=== PATIENT | male | born 1960 | race Caucasian/White ===

== ENCOUNTER 2019-02-21 17:08 | Inpatient (IN) | payer OTHER ==
[~2019-02-21] VITALS: Ht 152.4 cm; Wt 87.1 kg
[~2019-02-21 17:08] MED LIST: AMPHETAMINE SAL10 MG PO; DOXYCYCLINE 10100 MG PO; FISH OIL 1,001000 M2 PO; MICROZIDE12.5 MG PO; MOBIC15 MG PO; MULTIPLE VITAM1 EAC2 PO; OLANZAPINE-FLU1 EACH PO; TYLENOL EXTRA500 MG PO
[2019-02-21 17:09] VITALS: BP 100/56
[2019-02-21 17:56] LABS: ABSOLUTE NEUTROPHILS 5.3 thou/uL (1.4-8.2); BASOPHILS 0.6 % (0.0-2.0); HEMATOCRIT 40.1 % (42.0-52.0); HEMOGLOBIN 13.6 gm/dL (14.0-18.0); LYMPHOCYTES 19.7 % (24.0-44.0); MCH 32.5 pg (26.0-34.0); MCHC 33.8 g/dL (28.0-37.0); MONOCYTES 7.3 % (1.0-8.0); PLATELET COUNT 261 thou/uL (150-400); POLYS 70.4 % (36.0-66.0); RBC 4.18 mil/uL (4.50-6.00); RDW 12.9 % (10.5-14.5); WBC 7.6 thou/uL (4.0-11.0)
[2019-02-21 18:04] LABS: ANION GAP 6 mmol/L (7-16); BUN 23 mg/dL (7-18); CALCIUM 9.5 mg/dL (8.5-10.1); CHLORIDE 104 mmol/L (98-107); CO2 34 mmol/L (21-32); CREATININE 1.3 mg/dL (0.7-1.3); GLUCOSE 92 mg/dL (74-106); POTASSIUM 4.5 mmol/L (3.5-5.1); SODIUM 144 mmol/L (136-145)
[2019-02-21 18:14] LABS: ALBUMIN 3.4 g/dL (3.4-5.0); SGOT 19 U/L (15-37); SGPT 22 U/L (30-65); TOTAL BILIRUBIN 0.4 mg/dL (<0.1-1.0); TOTAL PROTEIN 7.3 g/dL (6.4-8.2); TROPONIN-I <0.06 ng/mL (<0.06)
[2019-02-21 18:41] LABS: URINE BILIRUBIN NEGATIVE (Negative); URINE BLOOD NEGATIVE (Negative); URINE CLARITY CLEAR; URINE COLOR YELLOW; URINE GLUCOSE-RANDOM* NEGATIVE (Negative); URINE KETONES TRACE (Negative); URINE LEUKOCYTES-REFLEX NEGATIVE (Negative); URINE NITRITE-REFLEX NEGATIVE (Negative); URINE PROTEIN (DIPSTICK) NEGATIVE (Negative)
[2019-02-22 07:55] VITALS: BP 112/60
--- NOTE | 2019-02-22 09:01 | NUR ---
admit pt admitted last evening for generalized weakness and tremors. vss, oriented to room call light system and poc. denies pain up with sba. voiding qs tremors noted pt reported thet are as is his shuffling gait. right eye red eye gtts given as ordered
[2019-02-22 13:51] VITALS: BP 98/55
--- NOTE | 2019-02-22 16:17 | NUR ---
PT ADMITTED RELATED TO WEAKNESS, HX OF HYDROCEPHALUS. CM REVIEWED CHART AND SPOKE WITH CARE TEAM. CM MET WITH PT AT BEDSIDE THIS DAY. PT IS A&O X4. CM ROLE INTRODUCED. PT INDICATED HE LIVES IN ASSISTED LIVING AT [facility]. 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 PT INDICATED THAT HE ANTICPATES RETURNING TO [facility] ONCE MEDICALLY STABLE. CM TO FOLLOW INDICATED WITH DC PLANNING.
--- NOTE | 2019-02-22 19:28 | NUR ---
ASSUMED CARE OF PATIENT AT 0715, PATIENT ALERT AND ORIENTED. PATIENT DENIES PAIN, VSS THIS SHIFT. PATIENT HAD MRI OF HEAD TODAY. PATIENT HAS RIGHT FOREARM IV WITH NS AT 80CC/HR. PATIENT ISOLATION DUE TO PINK EYE. PATIENT UP WITH SBA, GIAT NOT STAEDY, SHUFFLE GAIT WITH C/O WEAKNESS. APPETITE IS GOOD. LABS ORDERED FOR IN THE AM. WILL CONTINUE TO MONITOR.
--- NOTE | 2019-02-22 19:36 | NUR ---
Assumed patient care at 0715. Patient's vital signs have been stable, ABD soft et non-tender, BS x's 4, LSCTA, skin is clean, warm dry et intact; he denies pain. Patient consumed adequate amounts of food et fluids; IV is patent in left AC with NS @ 80cc per hour. Compliant with eye medications. Patient needs stand-by assist, as he leans to the right side et has a shuffled gait. Will continue to monitor.
[2019-02-22 20:12] VITALS: BP 114/60
--- NOTE | 2019-02-23 03:24 | NUR ---
PATIENT ALERT AND ORIENTED X4. REMAINS IN ISO FOR PINKEY[place]. UP TO BATHROOM WITH ASSIST OF ONE AND WALKER. HAS A SHUFFLE WALK. DENIES PAIN. SLEPT MOST OF TIME.
[2019-02-23 07:10] LABS: TSH 3.312 uIU/mL (0.358-3.740)
[2019-02-23 07:55] VITALS: BP 111/68
--- NOTE | 2019-02-23 07:55 | EKG ---
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
[2019-02-23 12:24] VITALS: BP 113/67
--- NOTE | 2019-02-23 13:56 | NUR ---
PT IS INDICATING THAT PT WILL BE MEDICALLY STABLE TO RETURN BACK TO ASSISTED LIVING AT [facility] WITH HOME HEALTH SERVICES. CM VISITED WITH PT TO DETERMINE WHICH PROVIDER PT WOULD LIKE TO USE AND HE INDICATED NO HX AND PREFERENCE. CM ASKED DC HOME PLANNING CONSULTANT SALESPERSON TO SEND REFERRAL TO [facility] TO SEE IF THEY CAN ACCEPT PT FOR HH SERVICES UPON DC. CM TO FOLLOW INDICATED WITH DC PLANNING.
--- NOTE | 2019-02-23 14:03 | NUR ---
DISCHARGE PLANNING. ANTICIPATED DISCHARGE PLANNED FOR TOMORROW. HOME HEALTH RECOMMENDED. REFERRAL FAXED TO [facility], PER PATIENT REQUEST. CALL PLACED TO [facility] TO NOTIFY. FOLLOWING.
--- NOTE | 2019-02-23 15:35 | NUR ---
[facility] WAS OUT OF NETWORK WITH PT'S INSURANCE. CM FAXED REFERRAL TO [facility] FOR REVIEW. CM TO FOLLOW INDICATED WITH DC PLANNING.
--- NOTE | 2019-02-23 18:08 | NUR ---
Assumed patient care at 0715. Patient continues on Contact Isolation for [facility]. He has been compliant with all medications during this shift. Patient continues to need some assistance with transferring from bed to chair, walking to and from the restroom. Vital signs have been stable, LSCTA, ABD soft et non-tender, skin is clean, warm, dry and intact; he denies pain. Will continue to monitor.
[2019-02-23 20:55] VITALS: BP 110/64
--- NOTE | 2019-02-24 04:08 | NUR ---
Pt. rested quietly at intervals during the night when checked on during frequent rounds. He refuses to remove his jeans and prefers to sleep in them. He offers no complaitns of pain. Assisted to the bathroom with one assist. Bed alarm is on.
[2019-02-24 08:38] VITALS: BP 117/73
[2019-02-24 14:19] VITALS: BP 105/59
[2019-02-24 14:47] VITALS: BP 105/59
[2019-02-24] MEDS ORDERED: TRIMETHOPRIM /P10 M1 OPHTHALMIC ×2 (16:04→16:08)
--- NOTE | 2019-02-24 16:10 | NUR ---
CARE TEAM INDICATED THAT PT IS MEDICALLY STABLE TO DC BACK TO [facility] THIS DAY. CHART COPY ORDERED. ORDERS FAXED. REPORT TO BE CALLED TO . WHEELCHAIR VAN ARRANGED FOR 1700. PT TO HAVE SERVICES [facility]. NO OTHER CM INTERVENTION INDICATED. CASE CLOSED.
--- NOTE | 2019-02-24 18:44 | NUR ---
ASSUMED CARE OF PATIENT AT 0715, PATIENT ALERT AND ORIENTED, CAN BE FORGETFUL. PATIENT DENIES PAIN THIS SHIFT. PATIENT IN ISOLATION FOR PINK EYE. PATIENT UP WITH SBA WITH GAIT BELT AND WALKER. FALL PRECAUTIONS IN PLACE, PATIENT INSTRUCTED TO CALL FOR ASSISTANCE. PATIENT HAS SHUFFLE GAIT AND UNSTEADY. DR MARCOS SAW THE PATIENT AND DISCHARGE ORDER BACK TO THE ASSISTED LIVING. SCRIPT FOR EYE DROPS IN DISCHARGE PAPERWORK, REPORT GIVEN TO DREW AT THE ASSISTED LIVING. ALL PERSONAL BELONGINGS SENT WITH THE PATIENT.
--- NOTE | 2019-03-04 09:22 | HC ---
[facility] [place] [place] [address] CONSULTATION Name: SHIN GOMEZ Room #: 443-P [facility] IN M.R.#: [id number] Admission: 02/21/19 Attend Phys: Ifeanyi Gutierrez MD Discharge: 02/24/19 Date of : 56 Report #: [id number] THIS REPORT FOR: //name// CC: Ifeanyi Chowdary DATE OF SERVICE: 02/22/2019 HISTORY OF PRESENT ILLNESS: This is a 58-year-old male patient who was seen by me with pretty unusual history. He indicates he was feeling weak all over the body. He indicates he got some IV fluid and he feels back to his baseline. He indicates he has some tremor which intermittently flares up. He was given some medication by somebody and that caused some diarrhea and he did not take it. He is also having some redness in the left eye. He sees a psychiatrist for multiple psychiatric problems. REVIEW OF SYSTEMS: Indicate he was feeling generalized weakness. He is feeling better from that. He has a history of hydrocephalus, but I do not know whether he has been evaluated by anybody. He says he can ambulate reasonably well. He has multiple psychiatric problems. His 14-point review of system was carried out and it is positive for OCD, depressive disorder. History says that he had some cervical spine problem. He says he does not have that. That was his relevant 14-point review of system. PAST MEDICAL HISTORY: Positive for tremor and psychiatric problem. FAMILY HISTORY: Negative for early age stroke. SOCIAL HISTORY: Denies the use of alcohol or tobacco. PHYSICAL EXAMINATION: Indicates he is alert, he is responsive, he can follow simple commands. His cranial nerve examinations indicate the left eye is red. He moves all 4 extremities. He said he has reasonably good position sense. He does have some tremor, but does not have much abnormality of [id number]. Cardiac and respiratory examinations appear noncontributory. He has no thyroid mass. He is reasonably well built individual. His blood pressure is 98/55. He has no respiratory difficulty. His pulse is 76, temperature is 98.3. His pulses are difficult to feel. DIAGNOSTIC STUDIES: CT and MRI was reviewed. It demonstrated chronic hydrocephalus. IMPRESSION: His symptoms are most likely related to systemic problem. His blood pressure is low. He feels better and back to the baseline after getting some IV fluid. I will suggest working that up. [facility] [address] [place] [address] CONSULTATION Name: SHIN GOMEZ Room #: 443-P [facility] IN M.R.#: [id number] Admission: 02/21/19 Attend Phys: Ifeanyi Gutierrez MD Discharge: 02/24/19 Date of : 56 Report #: [id number] He does have some hydrocephalus, this is probably an incidental finding, but I will suggest consulting neurosurgeon to complete the workup. I did order some more blood workup for morning. Please check that. Otherwise, I do not have anything specific to add. Please call us in case blood workup is abnormal or any further neurological followup is needed. Thank you very much for this referral and if you have any question, please feel free to contact me. <ELECTRONICALLY SIGNED> By: Edin Kiser MD 03/04/19 0922 1804 0411 Edin Kiser MD /nt
== END 2019-02-24 17:43 | DRG 948 ==
LOC: ER 17:08 → EROBS 20:54 → 4S 20:54
PROVIDERS: Physician Assistant; Psychiatry & Neurology Neuromuscular Medicine; ADMIT Hospitalist
DX: R53.1 Weakness (principal); G91.9 Hydrocephalus, unspecified; H10.89 Other conjunctivitis; F42.9 Obsessive-compulsive disorder, unspecified; F32.9 Major depressive disorder, single episode, unspecified; F41.9 Anxiety disorder, unspecified; Z88.1 Allergy status to other antibiotic agents; Z88.0 Allergy status to penicillin; Z88.8 Allergy status to other drugs, medicaments and biological substances; Z83.1 Family history of other infectious and parasitic diseases
CPT/HCPCS: 10195

== ENCOUNTER 2020-07-09 20:45 | Inpatient (IN) | payer OTHER ==
[~2020-07-09] VITALS: Ht 180.3 cm; Wt 78.8 kg
[~2020-07-09 20:45] MED LIST changes: +TRIMETHOPRIM /P10 M1 OPHTHALMIC
[2020-07-09 20:46] VITALS: BP 102/67
[2020-07-09 21:13] LABS: BASOPHILS 0.5 % (0.0-2.0); EOSINOPHILS 0.2 % (0.0-3.0); HEMATOCRIT 39.8 % (42.0-52.0); HEMOGLOBIN 13.4 gm/dL (14.0-18.0); LYMPHOCYTES 6.1 % (24.0-44.0); MCH 32.2 pg (26.0-34.0); MCHC 33.7 g/dL (28.0-37.0); MCV 95.5 fL (80.0-100.0); MONOCYTES 7.4 % (1.0-8.0); PLATELET COUNT 209 thou/uL (150-400); POLYS 85.8 % (36.0-66.0); RBC 4.17 mil/uL (4.50-6.00); RDW 13.7 % (10.5-14.5); WBC 17.5 thou/uL (4.0-11.0)
[2020-07-09 21:20] LABS: ANION GAP 10 mmol/L (7-16); BUN 15 mg/dL (7-18); CALCIUM 9.5 mg/dL (8.5-10.1); CHLORIDE 98 mmol/L (98-107); CO2 25 mmol/L (21-32); CREATININE 1.2 mg/dL (0.7-1.3); GLUCOSE 136 mg/dL (74-106); POTASSIUM 4.4 mmol/L (3.5-5.1); SODIUM 133 mmol/L (136-145)
[2020-07-09 21:30] LABS: ALBUMIN 3.2 g/dL (3.4-5.0); SGOT 23 U/L (15-37); SGPT 30 U/L (30-65); TOTAL BILIRUBIN 0.9 mg/dL (0.2-1.0); TOTAL PROTEIN 7.7 g/dL (6.4-8.2); TROPONIN-I <0.06 ng/mL (<0.06)
[2020-07-09] MEDS ORDERED: MULTIPLE VITAM1 EAC2 PO (21:54)
[2020-07-09] MEDS ORDERED: MIRALAX119 GM PO (21:54)
[2020-07-09] MEDS ORDERED: COLACE100 MG PO (21:54)
[2020-07-09] MEDS ORDERED: SYNTHROID50 MCG PO (21:55)
[2020-07-09] MEDS ORDERED: SEROQUEL 50 MG50 M1 PO (21:56)
[2020-07-09] MEDS ORDERED: FLUVOXAMINE MA100 MG PO (21:56)
[2020-07-10 01:54] LABS: URINE BILIRUBIN NEGATIVE (Negative); URINE BLOOD 2+ (Negative); URINE CLARITY CLOUDY; URINE COLOR YELLOW; URINE GLUCOSE-RANDOM* NEGATIVE (Negative); URINE KETONES 2+ (Negative); URINE NITRITE-REFLEX NEGATIVE (Negative); URINE PROTEIN (DIPSTICK) 1+ (Negative); URINE SPECIFIC GRAVITY 1.025 (1.005-1.035)
[2020-07-10 01:56] LABS: URINE LEUKOCYTES-REFLEX 2+ (Negative)
[2020-07-10 02:05] LABS: BACTERIA-REFLEX >30 Many /HPF (None Seen); CASTS None Seen /LPF (None Seen); CRYSTALS None Seen /LPF (None Seen); MUCUS 4-6 Moderate strn/LPF (None Seen); SQUAMOUS 0-3 Few /LPF (0-3)
--- NOTE | 2020-07-10 07:00 | EKG ---
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 : 1960 Requested By: Lakeshia Walls Order Number: [id number] MD: Amador Henry Measurements Intervals [place] Rate: 112 P: 59 [place]: 151 QRS: 69 QRSD: 87 T: 25 QT: 325 QTc: 444 Interpretive Statements Sinus tachycardia Ventricular premature complex Low voltage, extremity leads Compared to ECG 02/21/2019 17:45:06 Ventricular premature complex(es) now present Low QRS voltage now present Sinus rhythm no longer present Electronically Signed On 07-10-2020 6:59:55 CONSULTING ANALYST by Amador Henry [email or web address] <ELECTRONICALLY SIGNED> By: Amador Henry MD, FAC 07/10/20 0659 50 50 Amador Henry MD, [facility] /EPI
[2020-07-10 07:52] VITALS: BP 106/59
--- NOTE | 2020-07-10 10:55 | NUR ---
59-year-old male with history of congenital hydrocephalus, anxiety, hypothyroidism, recent COVID-19 diagnosis approximately 2 months prior to this ED presentation. The patient has been sent by [facility] (confirmed by Anny RAMIREZ on 07-10-20) for evaluation general weakness, syncopal episodes, most recently while on the toilet. Currently patient alert, oriented to self, follows commands. Patient reports to be SOA with decreased appetite for a few weeks. The patient has been admitted for: Sepsis likely secondary to UTI, Reported syncopal episode, Generalized weakness and debility, shingles to right flank, OCD/Depression, history of hydrocephalus and recent COVID 19. Influenza A & B negative. NOTE: PT/OT orders placed on 07-10-20 [facility] 02-24-19 and returned with Replaced By [facility]. Listed as authorized contact and next of kin is Anny Samuel [phone]. Spoke with Anny who is first cousin and DPOA and states he does have Asperger's with OCD tendencies. Anny confirmed patient does live in Assisted Living at [facility]. Reintroduced role of case management. Hope and plan is to return to Assisted Living with home health.
[2020-07-10 16:18] VITALS: BP 101/56
[2020-07-10 16:24] VITALS: BP 102/42
--- NOTE | 2020-07-10 16:36 | NUR ---
report rec'd from Karuna in ER
[2020-07-10 16:40] VITALS: BP 103/47
[2020-07-10] MEDS ORDERED: IBUPROFEN 400400 M1 PO (18:26)
--- NOTE | 2020-07-10 18:43 | NUR ---
THIS RN SPOKE TO PT DPOA MALLY FAJARDO. PT HAS DECLINED IN ACTIVITY SINCE COVID MAY 13, 2020. BEING INCONTINENT IS NOT NORMAL FOR PT. PT HAS BEEN REFUSING SHOWERS AT THE ASSISTED LIVING SINCE COVID. DPOA STATES PT HAS HAD AT LEAST THE FIRST ROUND OF THE COVID VACCINATION, UNSURE OF SECOND DOSE.
[2020-07-10 19:49] VITALS: BP 89/52
--- NOTE | 2020-07-10 22:38 | NUR ---
PT RESTLESS IN BED, INCONTINENT, IVF INTACT. FLAT AFFECT. BED ALARM ON. NOTED TREMORS WITH DRINKING OF WATER.
--- NOTE | 2020-07-11 03:42 | HC ---
[facility] [place] [address] CONSULTATION Name: SHIN GOMEZ Room #: 357-P ADM IN M.R.#: [id number] Admission: 07/10/20 Attend Phys: Emili Guzmán MD Discharge: Date of : 56 Report #: [id number] THIS REPORT FOR: cc: Cordell Stiles,Edin Fields MD ~ DATE OF SERVICE: 07/10/2020 HISTORY OF PRESENT ILLNESS: This 59-year-old male patient who was seen by me for a poorly defined history. He said he had an episode of syncope, but he does not remember much about that. Records indicate that he had COVID and then he is progressively feeling weaker. His appetite is decreased. He has a history of anxiety and hydrocephalus. Records indicate that he was evaluated by Neurosurgery and he was not found to be a candidate for any surgery. His CT scan does not show any change in that hydrocephalus. He said he lives in a [place]. REVIEW OF SYSTEMS: A 14-point review of systems was carried out, the best I can. He has a history of anxiety. He has a history of depression. He has a history of hydrocephalus. He said he is unable to ambulate and he has weakness. He has some cervical spine disease in the past. That was the relevant 14-point review of systems, which was carried out. PAST MEDICAL HISTORY: Positive for COVID. FAMILY HISTORY: Unremarkable. SOCIAL HISTORY: He says he lives in a [place]. He does not use any alcohol or smoke. PHYSICAL EXAMINATION: Indicate that he is alert. He is responsive. He can follow simple command. His speech looks intact. He believes his memory and fund of knowledge is at his baseline. Cranial nerve examination 2-12 does not appear to be showing any gross abnormality. He wanted to go to the restroom. His cooperation was not all that great. He moves all 4 extremities. He says he can feel on both sides. He does not have any meningeal sign. I could not look at the fundus. He does not appear to be in respiratory distress. CARDIAC: Unremarkable. VITAL SIGNS: His blood pressure is 103/47, respirations 19, pulse is 101, temperature is 98.6. LABORATORY DATA: White count is 17.5. His sodium is 133. His CT scan shows ventriculomegaly, which is unchanged. He does not have edema, cyanosis or jaundice. [facility] [address] [place] [address] CONSULTATION Name: SHIN GOMEZ Room #: 357-P ADM IN .R.#: [id number] Admission: 07/10/20 Attend Phys: Emili Guzmán MD Discharge: Date of : 56 Report #: [id number] IMPRESSION: Difficult to form in this patient. I will await their evaluation by physical therapy. He needs workup, but lot of workup is not even available there. He needs an EMG and we may get him evaluated by physical therapy and then subsequently rehabilitation and I will reevaluate him after he has an opportunity to work with physical therapy tomorrow. <ELECTRONICALLY SIGNED> By: Edin Kiser MD 07/11/20341 17 29 Edin Kiser MD /nt
[2020-07-11 03:59] VITALS: BP 120/68
[2020-07-11 04:00] LABS: HEMATOCRIT 38.2 % (42.0-52.0); HEMOGLOBIN 12.4 gm/dL (14.0-18.0); MCH 31.2 pg (26.0-34.0); MCHC 32.5 g/dL (28.0-37.0); RBC 3.98 mil/uL (4.50-6.00); RDW 14.1 % (10.5-14.5); WBC 13.6 thou/uL (4.0-11.0)
[2020-07-11 04:01] LABS: CALCIUM 8.8 mg/dL (8.5-10.1); POTASSIUM 4.1 mmol/L (3.5-5.1)
[2020-07-11 07:59] VITALS: BP 115/72
--- NOTE | 2020-07-11 11:51 | HC ---
[facility] [place] [address] CONSULTATION Name: SHIN GOMEZ Room #: 357-P ADM IN M.R.#: [id number] Admission: 07/10/20 Attend Phys: Emili Guzmán MD Discharge: Date of : 56 Report #: [id number] THIS REPORT FOR: cc: Cordell Stiles Louis D. DO Barry, Joseph W. MD ~ DATE OF SERVICE: 07/10/2020 INFECTIOUS DISEASE CONSULTATION ATTENDING PHYSICIAN: Dr. Guzmán. REASON FOR EVALUATION: Complicated urinary tract infection. HISTORY OF PRESENT ILLNESS: Chart reviewed, patient examined. This is a 59-year-old with history of hydrocephalus, who presented to the Emergency Room with complaints of chronic fatigue and weakness. He did have a fall as well, particularly evident in the past couple of weeks. He notes he was diagnosed with COVID-19 infection roughly 2 months ago. He does have some persistent dyspnea, sense of unwellness and has had some fevers that he describes, although no chills or sweats. He has not had significant GI related complaints. He has had adequate appetite. Evaluation noted leukocytosis with white count of 17.5, primary neutrophilia. CT of the head showed ventriculomegaly that was unchanged. Lactic acid 1.4. Chest x-ray, no acute cardiopulmonary process noted. Influenza antigen was negative. Urinalysis did show 16-25 white cells, greater than 30 bacteria. TSH within normal range 1.003. Blood cultures collected earlier today are negative thus far. He is empirically started on therapy with ceftriaxone. ALLERGIES: Listed to PENICILLIN, CIPROFLOXACIN. CURRENT MEDICATIONS: Include p.r.n. ondansetron as needed, famotidine, quetiapine, enoxaparin, ceftriaxone, levothyroxine. PAST MEDICAL HISTORY: Hypothyroidism, history of hydrocephalus, anxiety, depression, OCD. SOCIAL HISTORY: Nonsmoker, no ethanol, no illicit drug use. FAMILY HISTORY: Noncontributory. REVIEW OF SYSTEMS: Otherwise, unremarkable. PHYSICAL EXAMINATION: GENERAL: He appears somewhat chronically ill, undernourished. He is mildly [facility] [address] [place] [address] CONSULTATION Name: JASONSHIN AUSTIN Room #: 357-P [facility] IN [facility].#: [id number] Admission: 07/10/20 Attend Phys: Emili Guzmán MD Discharge: Date of : 56 Report #: [id number] encephalopathic. VITAL SIGNS: Temperature 99.2, pulse 110, respirations 24, blood pressure 101/48. SKIN: Warm, dry, no rashes. HEENT: Normocephalic. Extraocular muscles intact. NECK: Supple. LUNGS: Diminished breath sounds, generally clear. HEART: Regular, though it is tachycardic. May have soft systolic murmur. ABDOMEN: Soft, mildly distended, nontender. GENITOURINARY: Deferred. RECTAL: Deferred. LABORATORY DATA: Blood cultures sterile thus far. TSH described above 1.003. Urinalysis, 16-25 white cells, greater than 30 bacteria. Influenza antigen was negative. Lactic acid 1.4. Electrolytes: Sodium 133, potassium 4.4, chloride 98, bicarbonate was 25, anion gap of 10, BUN and creatinine 15 and 1.2, glucose of 136. LFTs unremarkable. Albumin of 3.2, total protein 7.7. Estimated GFR 62. CBC: White count of 17.5, H and H 13.4 and 39.8, platelets of 209. Differential problems of neutrophilia ____. ASSESSMENT AND PLAN: Complicated urinary tract infection. The patient has systemic signs and symptoms as well. It is difficult to ascertain if this explains the progressive weakness or not. Certainly, it may well be a contributing factor and we will continue empiric therapy. Apparently, tolerates cephalosporins. We will give a single dose of gentamicin pending the results. Recent hospitalization would be concerned about extended-spectrum beta lactamase producing organism. At this point, I do not see any other focus of pyogenic infection. We will await blood culture results. In the event of worsening respiratory status, we will repeat imaging of the chest and try to optimize his nutritional status. We will add incentive spirometry. Continue supportive care. <ELECTRONICALLY SIGNED> By: Doron Mancuso MD 07/11/20 1151 1110 1224 Doron Mancuso MD /nt
--- NOTE | 2020-07-11 14:08 | NUR ---
INITIAL ASSESSMENT: Received consult. YANA reviewed chart and spoke with nursing and attending physician. Pt was admitted from [facility] due to UTI/Sepsis. Pt had negative COVID test. Enhanced Isolation precautions have been discontinued. Pt is on IV abx. YANA spoke with pt's cousin/DPOA, Anny, via phone. Introduced role of SW. Pt is normally alert/orientated. Pt with hx of Asperger's. Pt is normally independent with mobility in his AL apt. No use of DME. Pt was recently in the skilled unit at [facility] in . Pt had tested positive for COVID in May. Pt has since discharged back to his AL apt and had [facility] arranged. Pt has received both doses of COVID vaccine at [facility]: 06/04 and 07/02. Info provided to pt's nurse. YANA discussed post-acute care with pt's DPOA: SNF v. Inpt acute rehab. Pt's DPOA requests 5N eval. YANA explained eval and need for insurance auth. Pt's DPOA verbalized understanding. YANA discussed with attending physician and N patient account liaison. Consult ordered. 5N to eval pt tomorrow. YANA spoke with Kelly in admissions at [facility], stating that pt may have exhausted his skilled benefit for the year. Kelly to check with pt's inurance. YANA spoke with Ange at [facility]. Pt's HH services ended on 07/03. Awaiting input from 5N at this time. YANA is following to assist as needed with discharge planning.
[2020-07-11 15:54] VITALS: BP 132/87
--- NOTE | 2020-07-11 15:54 | NUR ---
ASSUMED PATIENT CARE AT 0700. A/O X4. GENERLIZED WEAKNEES. AFEBRILE. UP WITH STANDBY ASSISTED. SLOWLY TOWARDS POC GOALS.
[2020-07-11 20:40] VITALS: BP 101/53
--- NOTE | 2020-07-11 22:42 | NUR ---
PT CLEARED FROM COVID ISOLATION, PER NINOSKA LESTER NURSE.
[2020-07-12 03:35] VITALS: BP 114/69
--- NOTE | 2020-07-12 03:48 | NUR ---
ASSESED AT START OF SHIFT. PT A&OX2 FORGETFUL. INCONTINENT OF URINE. IV INTACT AND ABX GIVEN. P HAD A BM SMEAR THIS SHIFT. OF COVID ISOLATION. PT TP TRANSFER TO ROOM 463. ALL PREC IN PLACE AND WILL CONT TO MONITOR.
--- NOTE | 2020-07-12 05:53 | NUR ---
ASSESSED AT START OF SHIFT. PT A&OX2 FORGETFUL. IV INTACT AND FLUIDS INFUSING. PT INCONTINENT OF BOWEL AND BLADDER. HAD A BM SMEAR THIS SHIFT. PT COVID RESULT NEGATIVE. ISOLATION MAINTAINED FOR SHINGLES. REDNESS NOTED ON RIGHT SIDE OF FLANK. PT TRANSFERD TO [facility] ROOM 463. REPORT GIVEN TO OTHER RN TO [facility] CARE.
--- NOTE | 2020-07-12 07:10 | NUR ---
Pt. transfered to the unit from [facility]. He is alert and oriented and offers no complaints. Bed alarm is on.
[2020-07-12 09:24] VITALS: BP 113/66
[2020-07-12 09:32] VITALS: BP 114/69
[2020-07-12] MEDS ORDERED: PEPCID20 MG PO (11:53)
[2020-07-12] MEDS ORDERED: KEFLEX500 M1 PO (12:14)
[2020-07-12] MEDS ORDERED: CEFUROXIME500 MG PO (12:21)
--- NOTE | 2020-07-12 13:34 | NUR ---
5N ASSESSED PT FOR POSSIBLE ADMISSION. THEY INDICATED THAT PT WOULD BE APPROPRIATE. CM HEARD FROM [facility] THAT PT HAS 21 DAYS OF SKILLED REHAB BENEFIT PER OCCURANCE. CM CALLED AND NOTIFIED PT'S COUSIN/DPOA AND SHE ASKED THAT SUBMITE FOR AUTH FOR POSSIBLE ADMISSION. CM NOTIFED LIAISON. AWAITING AUTH FOR POSSIBLE ADMISSION TO . CM TO FOLLOW INDICATED WITH DC PLANNING.
--- NOTE | 2020-07-12 15:59 | NUR ---
PATIENT SEEN FOR REHAB CONSULT AND IS APPROPRIATE FOR ACUTE REHAB ADMISSION. AUTHORIZATION REQUEST MADE TO PATIENT'S INSURANCE THIS DATE. WILL AWAIT RESPONSE ANTICIPATED ON 07/13/20. THANK YOU FOR THIS REFERRAL.
--- NOTE | 2020-07-12 16:45 | NUR ---
ASSUMED CARE OF PATIENT AT SHIFT CHANGE. ASSESSMENT CHARTED. MEDICATIONS GIVEN PER EMAR. VSS. PATIENT IS ALERT AND ORIENTED AND ABLE TO MAKE NEEDS KNOWN. PATIENT C/O FEELING WEAK AND "SORRY FOR CAUSING US TROUBLE". PATIENT NEEDED ASSISTANCE W TRAY SET UP FOR MEALS BUT ABLE TO FEED SELF. WORKED W PT/OT AND DID WELL; PATIENT ABLE TO TRANSFER FOR REHAB ONCE INSURANCE AUTHORIZATION IS GRANTED. PATIENT IS INCONTINENT AT TIMES BUT DOES USE URINAL. STATES HE "IS TOO WEAK" TO GET UP W NURSING STAFF. FLAT AND SLEEPING MOST OF DAY BUT PROGRESSING MEDICALLY. PATIENT VOICES NO FURTHER NEEDS. WILL CONTINUE TO MONITOR AND FOLLOW PLAN OF CARE
[2020-07-12 17:18] VITALS: BP 132/54
[2020-07-12 19:44] VITALS: BP 97/54
--- NOTE | 2020-07-13 02:17 | NUR ---
ASSUMED CARE OF PT AT 1900. PT IS A/O X4 AND IS UP WITH ASSIST/SBA WITH A WALKER AND GB. ROOM AIR, BP WAS LOW. AFEBRILE. INCONTINENT AT TIMES. USES A URINAL AT THE BEDSIDE WHEN ABLE. NO C/O PAIN OR DISCOMFORT. FALL PRECAUTIONS IN PLACE, CALL LIGHT IS WITHIN REACH. WILL CONTINUE TO MONTIOR.
[2020-07-13 08:08] VITALS: BP 93/53
[2020-07-13 12:12] VITALS: BP 100/56
--- NOTE | 2020-07-13 12:25 | NUR ---
[facility] CALLED AND INDICATED THAT THEIR BLOCK LAYER DENIED AUTH FOR ACUTE REHAB BUT AUTHORIZED SKILLED. CM NOTIFIED 5N AND HEAT TREAT FURNACE OPERATOR INDICATED THAT PEER TO PEER WASN'T APPROPRIATE. CM NOTIFIED [facility] OF POSSIBLE ADMISSION THEY ARE TO ATTEMPT TO CONTACT [facility] FOR THE AUTH. CM ATTEMPTED PC TO PT'S COUSIN/DPOA TO NOTIFY HER. LEFT VM AWAITING RETURN CALL. CM TO FOLLOW INDICATED WITH HOPEFUL DC TO SKILLED AT [facility] THIS DAY.
--- NOTE | 2020-07-13 12:30 | NUR ---
AUTHORIZATION DENIED BY INSURANCE. SKILLED WAS APPROVED. D/C CAREER GUIDANCE COUNSELOR AWARE. THANK YOU FOR THIS REFERAL.
--- NOTE | 2020-07-13 14:54 | NUR ---
Assumed pt care, vs stable stayed on the recliner in the am and had his meals. Isolation maintained for shingles. Pt is weak but able to carry on a conversation and had denied any pain or discomfort. POC followed with no signs or verbalizations of distres noted.
[2020-07-13 15:53] VITALS: BP 107/63
[2020-07-14 07:42] VITALS: BP 110/61
[2020-07-14 15:34] VITALS: BP 91/52
--- NOTE | 2020-07-14 15:37 | NUR ---
RN ASSUMED PT'S CARE AT 0700AM, PT IS A&0X3, PT IS ON ROOM AIR, PT'S VS ARE STABLE , PT DENIES PAIN AND SOB, PT'S WEAKNESS HAS IMPROVED, PT'S PLAN IS DC TO [facility] TODAY.
--- NOTE | 2020-07-14 16:13 | NUR ---
PT'S DISCHARGE IS ON HOLD , BECAUSE PT WILL HAVE MRI CERVICAL SPINE THURSDAY PER ORDER.
[2020-07-14 21:07] VITALS: BP 96/58
--- NOTE | 2020-07-15 04:49 | NUR ---
Pt. rested quietly during the night when checked on during frequent rounds. He offers no c/o pain or discomfort. Bed alarm is on.
[2020-07-15 08:54] VITALS: BP 114/68
[2020-07-15 11:39] LABS: HEMATOCRIT 38.9 % (42.0-52.0); MCH 31.6 pg (26.0-34.0); MCHC 33.3 g/dL (28.0-37.0); RBC 4.1 mil/uL (4.50-6.00); RDW 14.1 % (10.5-14.5); WBC 7.5 thou/uL (4.0-11.0)
[2020-07-15 11:50] LABS: ALBUMIN 2.7 g/dL (3.4-5.0); CALCIUM 9.7 mg/dL (8.5-10.1); CREATININE 0.9 mg/dL (0.7-1.3); POTASSIUM 3.8 mmol/L (3.5-5.1); TOTAL BILIRUBIN 0.3 mg/dL (0.2-1.0); TOTAL PROTEIN 7.3 g/dL (6.4-8.2)
[2020-07-15 15:46] VITALS: BP 93/58
--- NOTE | 2020-07-15 18:53 | NUR ---
PT A&OX4, VERY TIRED TODAY, BUT RESPONDES AND GETS UP TO EAT. PT VSS, DENIES PAIN. PATIENT ROOM AIR, NO SIGNS OF DISTRESS. WILL CONTINUE TO MONITOR
[2020-07-15 20:20] VITALS: BP 92/57
--- NOTE | 2020-07-16 03:31 | NUR ---
PT SLEPT ALL NIGHT. NO CONCERNS VOICED. DENIES CHEST PAIN, NAUSEA OR VOMITING. VITALS STABLE. WILL CONTINUE TO MONITOR.
[2020-07-16 08:07] VITALS: BP 116/56
--- NOTE | 2020-07-16 11:56 | NUR ---
RECEIVED NOTICE OF DENIAL FOR ACUTE REHAB FROM [facility].
--- NOTE | 2020-07-16 14:45 | NUR ---
Received awake on bed. Due medications given as prescribed, able to swallow meds w/o difficulty. On MS, not on telemetry; no complains and signs of chest pain, crushing sensation and heaviness. On room air. Vital signs stable. On heart healthy diet- tolerating well; no nausea, no vomiting and no abdominal pain. Contient of bowel and bladder, able to use urinal- output measured and recorded accordingly. With SL at L FA. For MRI today- scheduled; went down via wheelchair, tolerated procedure well; back to room safely. Able to turn self in bed. Maintained on isolation due to shingles. To continue monitoring patient. With discharge orders- as per CM still a/w insurance authorization.
--- NOTE | 2020-07-16 15:06 | NUR ---
WAS NOTIFIED BY CORAL IN ADM AT [facility] THAT THEIR FAX IS NOT WORKING. I, HAD CLINICAL UPDATE EMAILED BY MEGHAN IN CASE MANAGEMENT TO [facility] SPOKE WITH CORAL IN ADM SHE RECEIVED UPDATE.
--- NOTE | 2020-07-16 15:32 | NUR ---
YANA reviewed chart and spoke with nursing. Pt is medically stable for discharge to [facility]. YANA spoke with Kelly in admissions at [facility], who states they had auth on Thursday, with the anticipation of pt discharging on Thursday. Neuro wanted an MRI, which was unable to be completed until today. [facility] will need a new authorization. operations planner to fax clinical/therapy updates when available to submit to insurance. YANA left voice message for pt's cousin/DPOA, Anny, to provide update. YANA is following to assist as needed with discharge planning.
[2020-07-16 16:27] VITALS: BP 91/55
[2020-07-16 20:00] VITALS: BP 101/61
--- NOTE | 2020-07-17 05:47 | NUR ---
Assumed pt care at 1900. A/OX4,VSS.Denies pain on assessment. Up with moderate assist,weak/fatigued. Voiding per urinal this shift. Continiues on isolation for shingles on right flank,red pustules noted not scabbed over yet. Fall precautions in place,calls as needed for help.
[2020-07-17 07:48] VITALS: BP 113/74
--- NOTE | 2020-07-17 12:08 | NUR ---
CARE TEAM INDICATED THAT PT IS MEDICALLY STABLE TO [facility] THIS DAY. AUTH WAS RECEIVED. TRANSPORT ARRAGNED FOR 1330. CM CALLED AN LEFT VM WITH PT'S COUSIN/DPOA AND NOTIFIED PT. CHART COPY ORDERED. ORDERS FAXED. NURSE GIVEN NUMBER FOR REPORT. NO OTHER CM INTERVENTION INDICATED. CASE CLOSED.
--- NOTE | 2020-07-17 12:16 | NUR ---
Received awake on bed. Due medications given as prescribed, able to swallow meds w/o difficulty. On room air. Vital signs stable. On MS, not on t
--- NOTE | 2020-07-17 12:17 | NUR ---
Received awake on bed. Due medications given as prescribed, able to swallow meds w/o difficulty. On room air. Vital signs stable. On MS, not on telemetry; no complains and signs of chest pain, crushing sensation and heaviness. Assisted in ADLs. On heart healthy diet- tolerating well; no nausea, no vomiting and no abdominal pain noted. With SL at L FA. Able to turn self in bed. Maintained on isolation due to Shingles, protocol observed. Patient seen and examined by Dr Guzmán this AM; pt still for discharge- a/w insurance authorization- CM informed and aware. To continue monitoring patient.
== END 2020-07-17 13:50 | DRG 871 ==
LOC: ER 20:45 → EROBS 07-10 02:48 → 3W 07-10 02:48 → 4W 07-12 05:59
PROVIDERS: Internal Medicine; Nurse Practitioner Family; Physician Assistant; ADMIT Hospitalist; ATTEND Hospitalist
DX: A41.9 Sepsis, unspecified organism (principal); G93.41 Metabolic encephalopathy; N39.0 Urinary tract infection, site not specified; B02.9 Zoster without complications; F41.9 Anxiety disorder, unspecified; F42.9 Obsessive-compulsive disorder, unspecified; E03.9 Hypothyroidism, unspecified; F32.9 Major depressive disorder, single episode, unspecified; R53.81 Other malaise; Q03.9 Congenital hydrocephalus, unspecified; B96.20 Unspecified Escherichia coli [E. coli] as the cause of diseases classified elsewhere; Z88.0 Allergy status to penicillin; Z88.1 Allergy status to other antibiotic agents; Z88.8 Allergy status to other drugs, medicaments and biological substances; Z86.16 Personal history of COVID-19; Z20.822 Contact with and (suspected) exposure to COVID-19
CPT/HCPCS: 10045; 10047; 10879

== ENCOUNTER 2020-08-06 09:41 | Inpatient (IN) | payer OTHER ==
[~2020-08-06] VITALS: Ht 180.3 cm; Wt 80.7 kg
--- NOTE | ~2020-08-06 | EMS ---
[facility] [address] [place] [address] EMS Patient Care Report Name: SHIN GOMEZ Room #: PRE M.R.#: [id number] Admission: Attend Phys: Discharge: Date of : 56 Report #: [id number] THIS REPORT FOR: //name// Report Transmitted: 08/06/2020 09:55 EMS Care Summary [place], [place]/[facility] Incident [id number] @ 08/06/2020 09:06 Incident Location [address] Patient SHIN GOMEZ Male, 59 Years 1960 Patient Address [address] [place] [address] Patient History Hyperlipidemia,Attention Deficit Hyperactivity Disorder (ADHD),Obsessive-Compulsive Disorder (OCD),Hypothyroidism,Headache,Cellulitis, Patient Allergies Penicillin allergy,Cipro, Patient Medications Tylenol, Abilify, Synthroid, Fluoxetine, Colace, Miralax, Chief Complaint TREMORS Disposition Transported No Lights/[place] Dispatch Reason Sick Person Transported To [facility] Narrative DISPATCHED NON EMERGENCY ON A SICK. 59 Y/O MALE LAYING SUPINE IN CUSTODIAL BED APPEARING IN NO IMMEDIATE DISTRESS. PT IS ON OXYGEN AT 2LPM. GCS 15 AND [facility] [address] [place] [address] EMS Patient Care Report Name: SHIN GOMEZ Room #: PRE Stacia#: [id number] Admission: Attend Phys: Discharge: Date of : 56 Report #: [id number] A/OX4. CONSENTS FOR TX AND TRANSPORTATION. PT COMPLAINS OF HAVING TREMORS AND CHILLS SINCE YESTERDAY. DOES NOT HISTORY OF TREMORS. NURSE STATES THAT PT'S COVID TEST WAS NEGATIVE AND HE IN REHABILITATION FOR SEPSIS DUE TO A UTI. PT HAS BEEN TREATED FOR THE SEPSIS AND UTI. DENIES ABNORMAL URINE. DENIES ANY OTHER MEDICAL COMPLAINTS. NURSE STATES THEY HAD PT ON OXYGEN DUE TO THE LOW READING THEY OBTAINED. MOVED WITHOUT INCIDENT TO AMBULANCE VIA STRETCHER. V/S'S OBTAINED. OXYGEN SATURATION IS 96% FOR EMS ON ROOM AIR. DENIES ANY DIFFICULTY BREATHING. DENIES ANY PAIN. TRANSPORTED TO [facility]. REASSESSED ENROUTE. REMAINS GCS 15 AND ALERT. REPORT CALLED TO HOSPITAL. V/S'S OBTAINED. MOVED WITHOUT INCIDENT TO ER HOSPITAL BED 11. PT CARE TRANSFERRED TO ED RN. Initial Vitals @PTAP: 138,BP: 146/93,GCS: 15,Temp: 98.2F,Glucose: 103,SpO2: 87, @09:28P: 98,R: 18,BP: 122/69,Pain: 0/10,GCS: 15,SpO2: 96,Revised Trauma: 12, @09:32P: 100,R: 16,BP: 116/72,Pain: 0/10,GCS: 15,CO: 0,SpO2: 96,Revised Trauma: 12, Assessments @09:24MENTAL:Person Oriented,Time Oriented,Place Oriented,Event Oriented,SKIN:HEENT:Head/Face: No Abnormalities,Neck/Airway: No Abnormalities,LUNG SOUNDS:General: No Abnormalities,ABDOMEN:General: No Abnormalities,PELVIS//GI:EXTREMITIES:Capillary Refill: Right Upper: < 2 Sec,Capillary Refill: Left Upper: < 2 Sec,Left Arm: No Abnormalities,Right Arm: No Abnormalities,Left Leg: No Abnormalities,Right Leg: No Abnormalities,PULSE:Radial: 2+ Normal,NEURO:No Abnormalities, Impression Need for continuous medical supervision Procedures @09:24ALS AssessmentResponse: UnchangedSucceeded@09:25StretcherResponse: Unchanged Timeline SODA FOUNTAIN CLERK,BP: 146/93 M,PULSE: 138,RR: R,SPO2: 87 Ox,ETCO2: ,B,PAIN: ,GCS: 15, 09:04,Call Received 09:04,Dispatch Notified 09:06,Dispatched 09:07,En Route 09:19,On Scene 09:23,At Patient 09:24,ALS Assessment,Response: UnchangedSucceeded, 09:25,Stretcher,Response: Unchanged 09:28,BP: 122/69 M,PULSE: 98,RR: 18 R,SPO2: 96 Ox,ETCO2: ,BG: ,PAIN: 0,GCS: 15, 09:30,Depart Scene 09:32,BP: 116/72 M,PULSE: 100,RR: 16 R,SPO2: 96 Ox,ETCO2: ,BG: ,PAIN: 0,GCS: [facility] [address] [place] [address] EMS Patient Care Report Name: SHIN GOMEZ Room #: PRE M.R.#: [id number] Admission: Attend Phys: Discharge: Date of : 56 Report #: [id number] 15, 09:35,At Destination 09:51,Call Closed Disclaimer v1.1 Copyright 2020 [employer] This EMS Care Summary contains data elements from the applicable legal record (which may be displayed differently). It is designed to provide pertinent information for the following purposes: continuity of care, clinical quality, and state data reporting. The complete legal record is available to ED staff and administrators of the receiving hospital in [employer]'s Patient Tracker. All data is provided "as is."
[~2020-08-06 09:41] MED LIST changes: +CEFUROXIME500 MG PO; +COLACE100 MG PO; +FLUVOXAMINE MA100 MG PO; +IBUPROFEN 400400 M1 PO; +KEFLEX500 M1 PO; +MIRALAX119 GM PO; +PEPCID20 MG PO; +SEROQUEL 50 MG50 M1 PO; +SYNTHROID50 MCG PO
[2020-08-06 09:43] VITALS: BP 115/57
[2020-08-06] MEDS ORDERED: ACETAMINOPHEN500 M1 PO (09:49)
[2020-08-06] MEDS ORDERED: ONDANSETRON ODT4 MG PO (09:50)
[2020-08-06 10:16] LABS: HEMATOCRIT 35.3 % (42.0-52.0); HEMOGLOBIN 11.7 gm/dL (14.0-18.0); MCH 31.3 pg (26.0-34.0); MCHC 33.2 g/dL (28.0-37.0); MCV 94.4 fL (80.0-100.0); PLATELET COUNT 171 thou/uL (150-400); RBC 3.74 mil/uL (4.50-6.00); RDW 14.8 % (10.5-14.5)
[2020-08-06 10:29] LABS: CALCIUM 9.5 mg/dL (8.5-10.1); POTASSIUM 3.8 mmol/L (3.5-5.1)
[2020-08-06 10:36] LABS: TOTAL BILIRUBIN 1.2 mg/dL (0.2-1.0); TOTAL PROTEIN 7.7 g/dL (6.4-8.2)
[2020-08-06 11:14] LABS: ABSOLUTE NEUTROPHILS 19.8 thou/uL (1.4-8.2); ANISOCYTOSIS 1+; PLATELET ESTIMATE NORMAL
[2020-08-06 11:33] LABS: URINE BILIRUBIN NEGATIVE (Negative); URINE BLOOD 2+ (Negative); URINE CLARITY CLOUDY; URINE COLOR YELLOW; URINE GLUCOSE-RANDOM* NEGATIVE (Negative); URINE KETONES NEGATIVE (Negative); URINE LEUKOCYTES-REFLEX 2+ (Negative); URINE NITRITE-REFLEX POSITIVE (Negative); URINE PROTEIN (DIPSTICK) 2+ (Negative)
[2020-08-06 11:51] LABS: BACTERIA-REFLEX >30 Many /HPF (None Seen); CASTS None Seen /LPF (None Seen); CRYSTALS None Seen /LPF (None Seen); SQUAMOUS None Seen /LPF (0-3); URINE RBC 0-2 Rare /HPF (0-2); URINE WBC-REFLEX >25 Many /HPF (0-5)
--- NOTE | 2020-08-06 15:57 | EKG ---
[address] [place] [place] [address] ELECTROCARDIOGRAM REPORT Name: SHIN GOMEZ Room #: 170-11 ADM IN M.R.#: [id number] Admission: 08/06/20 Attend Phys: Breanna Narayan Discharge: Date of : 56 Report #: [id number] [facility] ED Test Date: 2020-08-06 Test Time: 10:26:11 Pat Name: SHIN GOMEZ Department: Room: 170 Gender: M Range Technician: rosa : 1960 Requested By: Mandeep Stephenson Order Number: [id number] MD: Amador Henry Measurements Intervals [place] Rate: 135 P: 35 CA: 138 QRS: 72 QRSD: 128 T: -6 QT: 276 QTc: 414 Interpretive Statements Sinus tachycardia Nonspecific intraventricular conduction delay Borderline ST elevation, lateral leads Artifact in lead(s) I,II,III,aVR,aVL,aVF,V3,V6 Compared to ECG 07/09/2020 20:51:18 Intraventricular conduction delay now present ST (T wave) deviation now present Ventricular premature complex(es) no longer present Electronically Signed On 08-06-2020 15:57:28 TAPPING MACHINE OPERATOR by Amador Henry [email or web address] <ELECTRONICALLY SIGNED> By: Amador Henry MD, [facility] 08/06/20 1557 1026 1026 Amador Henry MD, [facility] /EPI
[2020-08-06 16:47] VITALS: BP 108/58
[2020-08-06 17:09] VITALS: BP 108/58
[2020-08-06 19:53] VITALS: BP 107/67
--- NOTE | 2020-08-06 20:08 | NUR ---
08/06/20 PATIENT ADMITTED TO UNIT AROUBD 1730. IV FLUIDS STARTED AT 100CC/ HOUR. PATIENT FEBRILE AND TACHYCARDIC. HEART RATE UP TO 140'S. TASHI RING ([employer]) NOTIFIED AND MORE TYLENOL ORDERED. PATIENT IS ORIENTED BUT VERY POOR HISTORIAN AT THIS TIME. WILL CONTINUE TO MONITOR.
--- NOTE | 2020-08-07 04:46 | NUR ---
Pt. rested quietly at short intervals during the night when checked on during frequent rounds. Elevated temperature and po tylenol was given with decrease in temperature noted. NO c/o pain. Incontinent of urine at times. Bed alarm is on.
[2020-08-07 05:02] LABS: HEMATOCRIT 37.4 % (42.0-52.0); HEMOGLOBIN 12.2 gm/dL (14.0-18.0); MCH 31.3 pg (26.0-34.0); MCHC 32.7 g/dL (28.0-37.0); MCV 95.5 fL (80.0-100.0); RBC 3.91 mil/uL (4.50-6.00); RDW 14.7 % (10.5-14.5); WBC 21.6 thou/uL (4.0-11.0)
[2020-08-07 05:18] LABS: ALBUMIN 2.6 g/dL (3.4-5.0); CALCIUM 8.6 mg/dL (8.5-10.1); CREATININE 1.5 mg/dL (0.7-1.3); PHOSPHORUS 2.6 mg/dL (2.5-4.9); POTASSIUM 3.9 mmol/L (3.5-5.1)
[2020-08-07 08:00] VITALS: BP 84/46
[2020-08-07 11:45] VITALS: BP 83/49
[2020-08-07 13:00] VITALS: BP 102/60
--- NOTE | 2020-08-07 15:10 | NUR ---
PT ADMITTED RELATED TO SEPSIS, UTI, MANAV. CM REVIEWED CHART AND SPOKE WITH CARE TEAM. CM ATTEMPTED PC TO PT'S COUSIN/DPOA MALLY AND CM LEFT VM. PT IS FAMILIAR TO CM FROM PREVIOUS ADMISSION. PT RESIDES IN AL AT [facility]. PT HAD DISCHARGE TO [facility] AT [facility] 07/17/20. PT HAD BEEN SKILLED AT [facility]. CM SPOKE WITH CORAL IN ADMISSIONS. PT IS ON IV CEFEPIME. CM TO FOLLOW INDICATED WITH DC PLANNING.
[2020-08-07 15:30] VITALS: BP 135/47
[2020-08-07 16:00] VITALS: BP 107/52
--- NOTE | 2020-08-07 18:50 | NUR ---
08/07/20 ASSUMED PATIENT CARE AT 0700. PATIENT WAS HYPOTENSIVE. DR. SULLIVAN NOTIFIED, 1 LITER FLUID BOLUS GIVEN PER ORDERS. BLOOD PRESSURE RECOVERED, SEE FLOWSHEET FOR VITALS. DR. SULLIVAN NOTIFIED THAT BLOOD PRESSURE STABLE. INCONTINENT OF URINE AND STOOL. ABX GIVEN PER ORDERS. PATIENT AFEBRILE TEMP PAX 99 F. WILL CONTINUE TO MONITOR.
[2020-08-07 19:07] VITALS: BP 111/50
[2020-08-08 05:44] LABS: HEMATOCRIT 29.6 % (42.0-52.0); MCH 31.6 pg (26.0-34.0); MCHC 33.5 g/dL (28.0-37.0); MCV 94.2 fL (80.0-100.0); RBC 3.14 mil/uL (4.50-6.00); WBC 14.3 thou/uL (4.0-11.0)
[2020-08-08 05:55] LABS: HEMOGLOBIN 9.9 gm/dL (14.0-18.0)
[2020-08-08 06:09] LABS: ALBUMIN 2.1 g/dL (3.4-5.0); CALCIUM 8.1 mg/dL (8.5-10.1); CREATININE 1.2 mg/dL (0.7-1.3); PHOSPHORUS 1.4 mg/dL (2.5-4.9)
[2020-08-08 06:14] LABS: POTASSIUM 2.9 mmol/L (3.5-5.1)
[2020-08-08 08:00] VITALS: BP 111/50
--- NOTE | 2020-08-08 10:11 | NUR ---
PT ALERT AND ORIENTED THIS AM. PT WARM TO THE TOUCH BUT AFEBRILE. PT DENIES PAIN OR DISCOMFORT. 20G RAC WITH NS RUNNING AT 100ML/HR. PT RESTING IN BED AT THIS TIME AND PLAN WILL TO BE HERE FOR A FEW MORE DAYS WITH IV ABX, PT WBC WNL THIS AM LAB DRAW. PTS GOAL IS TO GET INTO SHOWER TODAY AND GET UP AND MOVING IN THE ROOM. NO OTHER QUESTIONS OR CONCERNS AT THIS TIME. WILL CONT TO MONITOR. CALL LIGHT IN REACH.
--- NOTE | 2020-08-08 15:26 | NUR ---
CARE TEAM RECOMMENDING CONTINUED POST ACUTE CARE STAY. CM PROVIDED PT'S DPOA/COUSIN'S CONTACT INFO TO PHYSICIAN SHE WANTED TO SEE WHAT SHE/FACILITY STAFF COULD DO TO DECREASE OCCURANCE OF UTIS. CM HAD LEFT VM WITH MALLY TO SEE IF SHE WAS WANTING TO SEE IF PT COULD RETURN SKILLED TO [facility] OR IF SHE WAS INTERESTED IN HAVING REFERRAL SENT ELSEWHERE FOR POSSIBLE ADMISSION. CM TO FOLLOW INDICATED WITH DC PLANNING.
--- NOTE | 2020-08-08 15:34 | NUR ---
FAXED CLINICAL UPDATE TO [facility] RECEIVED CONFIRMATION AND LEFT MSG WITH CORAL IN ADM.
--- NOTE | 2020-08-08 15:52 | NUR ---
PT ADMITTED TO THE FLOOR POST OP OF A HIATAL HERNIA REPAIN TAMMIE VELASCO, PT IS ALERT AND ORIENTED X4, CAME TO THE UNIT WITH 2L OXYGEN. STABLE ON ROOM AIR AT THIS TIME O2 REMOVED FROM PT. PT STATES MILD PAIN INCREASED WITH AMBULATION TO BATHROOM, GAIT WAS STEADY STAND BY ASSIST. PT SPLINTED ABDOMEN WITH AMBULATION. PT IS ON A REGULAR DIET AND CAME TO THE UNIT WITH IV ACCESS SALINE LOCKED. PT HAS MILD SWELLING NOTED TO RIGHT LIP THAT ISNT BASELINE, GAG REFLEX PRESENT AND ABLE TO TOLERATE FOOD AND LIQUIDS WELL WITH NO COMPLICATIONS. DAUGHTER IN LAW AT BEDSIDE, ROOM ORIENTED REFRESHMENTS PROVIDED AND CALL LIGHT IN REACH
[2020-08-08 20:04] VITALS: BP 123/62
--- NOTE | 2020-08-09 03:15 | NUR ---
PT CARE ASSUMED WITH PT IN BED FINISHING UP WITH HIS DINNER.PT IS A/O X3 AND FORGETFUL.PT USES URINAL AND ALSO INCONTINENT.PT IS ON TELE WITH NSR/ST.PT ABLE TO REPOSITION SELF IN BED.PT APPEARED TO BE IN NO ACUTE DISTRESS.WILL CONTINUE TO MONITOR PER POC
[2020-08-09 07:29] VITALS: BP 143/67
[2020-08-09] MEDS ORDERED: CEFUROXIME500 MG PO (08:20)
--- NOTE | 2020-08-09 10:54 | NUR ---
CM SPOKE WITH PT'S DPOA/COUSING THIS AM. SHE INDICATED THAT SHE WANTED PT ASSESSED FOR POSSIBLE 5N ACUTE REHAB ADMISSION SHE ISN'T PLEASED WIT THE SKILLED REHAB PT HAD BEEN GETTING AT [facility]. CM HAD MESSAGED HOSPITALIST WITH HER INFO YESTERDAY AND INDICATED THAT SHE WANTED TO SPEAK WITH HIM ABOUT HIS RECURRENT UTIS AND REALISTIC EXPECATIONS OF SKILLED REHAB AND CARES. HOSPITALIST HADN'T CALLED OF THIS AM. AUTH WILL BE NEEDED FOR PT TO GO ANYWHERE ACUTE OR SKILLED. CM TO FOLLOW INDICATED WITH DC PLANNING.
[2020-08-09 11:03] VITALS: BP 97/54
--- NOTE | 2020-08-09 14:51 | NUR ---
PT A&OX 3-4, VSS, DENIES PAIN. PATIENT SLEPT MOST OF DAY. IV PATENT LEFT WRIST. PATIENT WALKED WITH PHYSICAL THERAPY. NO SIGNS OF DISTRESS. WILL CONTINUE TO MONITOR.
[2020-08-09 15:19] VITALS: BP 113/55
--- NOTE | 2020-08-09 15:45 | NUR ---
FAXED DISCHARGE ORDERS, SUMMARY, 08/09 THERAPY NOTES AND PENDING & NEGATIVE COVID RESULTS TO [facility]. WILL CONFIRM THEY RECEIVED. CLAUDIA MANTILLA: P [phone]; FAX [phone] (FIRST FLOOR FAX)
[2020-08-09 19:30] VITALS: BP 134/50
--- NOTE | 2020-08-10 02:56 | NUR ---
PT CARE ASSUMED WITH PT IN BED .PT IS A/O X3.PT IS UP WITH X1 ASSIST.PT IS IS INCONTINENT/CONTINENT AND USES A URINAL.PT CALLS APPROPRIETELY FOR HELP .PT PT WALKED WITH PT/OT.PT APPEAR TO BE IN NO ACUTE DISTRESS.PT IS ON ROOM AIR.IV ACCESS ON LT WRIST WITH NS AT 100CC/HR.WILL CONTINUE TO MONITOR
[2020-08-10 07:26] VITALS: BP 114/67
--- NOTE | 2020-08-10 09:32 | NUR ---
[facility] ASSSESSED PT YESTERDAY AFTERNOON. THEY INDICATED THAT THEY WOULD BE WILLING TO ACCEPT AND SUBMIT FOR INSURANE AUTH PT HAD "FAILED SKILLED REHAB SERVICES AND WOULD BENEFIT FROM INCREASED MEDICAL OVERSIGHT." PT INDICATED THAT HE WASN'T WANTING PT PARTICIPATE IN 3 HRS OF THERAPY PER DAY AND WOULD PREFER TO RETURN TO [facility] SKILLED UPON DC. CM NOTIFIED PT'S DPOA/COUSIN MALLY. SHE WAS AGREEABLE WITH PT RETURNING TO [facility] IF THAT WAS HIS STATED PREFERENCE. CLINICAL UPDATE SENT TO [facility] AWAITING INSURANCE AUTH FOR PT TO RETURN THERE SKILLED.
[2020-08-10 12:11] VITALS: BP 112/70
--- NOTE | 2020-08-10 12:40 | NUR ---
PT A&OX3-4, VSS, DENIES PAIN. PATIENT WALKED WITH WALKER WITH PT. PATIENT HAS LOW APPETITIE AND ENCOURAGED TO EAT. PATIENT ALSO ENCOURAGED TO SIT IN RECLINER AND REFUSED. PATIENT STATES HE FEELS WEAK AND TIRED. NO SIGNS OF DISTRESS. WILL CONTINUE TO MONITOR.
--- NOTE | 2020-08-10 15:45 | NUR ---
CM RECEIVED CALL FROM [facility] AND THEY PROVIDED SKILLED AUTH FOR PT TO GO TO [facility] AUTH #[id number]. CM CALLED CORAL IN ADMISSIONS AT [facility] AND NOTIFIED HER. "SHE WAS CHECKING TO SEE WHAT SHE COULD DO." CM CALLED AND NOTIFIED PT'S DPOA/COUSIN OF PROBABLE DC TO [facility] THIS DAY. NURSE TO CALL HER WITH TRANSPORT TIME ONCE ARRANGED BY [facility]. CHART COPY MADE. ORDERS FAXED. NURSE GIVEN NUMBER FOR REPORT.
[2020-08-10 16:11] VITALS: BP 120/55
== END 2020-08-10 17:32 | DRG 871 ==
LOC: ER 09:41 → EROBS 13:55 → 4W 13:55
PROVIDERS: Emergency Medicine; ADMIT Hospitalist; ATTEND Hospitalist
DX: A41.51 Sepsis due to Escherichia coli [E. coli] (principal); N17.0 Acute kidney failure with tubular necrosis; N39.0 Urinary tract infection, site not specified; B02.9 Zoster without complications; F42.9 Obsessive-compulsive disorder, unspecified; F32.9 Major depressive disorder, single episode, unspecified; B96.20 Unspecified Escherichia coli [E. coli] as the cause of diseases classified elsewhere; F41.9 Anxiety disorder, unspecified; Z20.822 Contact with and (suspected) exposure to COVID-19; Z86.16 Personal history of COVID-19; Z79.899 Other long term (current) drug therapy; Z88.1 Allergy status to other antibiotic agents; Z88.0 Allergy status to penicillin; Z88.8 Allergy status to other drugs, medicaments and biological substances
CPT/HCPCS: 10045